=== PATIENT | male | born 1985 | race Two or more races ===

== ENCOUNTER 2022-04-21 01:54 | Emergency (ER) | payer OTHER ==
[~2022-04-21] VITALS: Ht 190.5 cm; Wt 97.7 kg
[2022-04-21 02:13] VITALS: BP 138/90
[2022-04-21] MEDS ORDERED: TETANUS-DIPTH-ACEL PERTUSSIS 0.5ML SYR Tdap IM ONE (03:00)
== END 2022-04-21 03:40 | disposition home or self-care (01) ==
LOC: ER 02:00
DX: S70.351A Superficial foreign body, right thigh, initial encounter (principal); W45.8XXA Other foreign body or object entering through skin, initial encounter; Y93.89 Activity, other specified; Y92.89 Other specified places as the place of occurrence of the external cause; Y99.8 Other external cause status
CPT/HCPCS: 90471; 90715

== ENCOUNTER 2023-09-16 19:30 | Emergency (ER) | payer OTHER ==
[~2023-09-16] VITALS: Ht 190.5 cm; Wt 100.0 kg
[2023-09-16] MEDS ORDERED: CEPH500C PO (19:53)
[2023-09-16] MEDS ORDERED: MUPI2OIN2 EX ×3 (19:53→20:33)
[2023-09-16 20:03] VITALS: BP 176/76; PULSE 86; RESP 16; TEMP 97.7; O2SAT 97
[2023-09-16] MEDS ORDERED: AUG875T PO ×3 (20:13→20:33)
[2023-09-16] MEDS ORDERED: HYDROcodone-ACET 10/325MG TAB PO ONE (20:15)
[2023-09-16] MEDS ORDERED: LIDOCAINE 1% HCL (LOCAL ANESTH.) INJ 20ML MDV ID ONE (20:15)
[2023-09-16] MEDS ORDERED: TETANUS-DIPTH-ACEL PERTUSSIS 0.5ML SYR Tdap IM ONE (20:15)
== END 2023-09-16 20:36 | disposition home or self-care (01) ==
LOC: ER 19:30
DX: S61.511A Laceration without foreign body of right wrist, initial encounter (principal); S61.217A Laceration without foreign body of left little finger without damage to nail, initial encounter; Z79.2 Long term (current) use of antibiotics; Z79.899 Other long term (current) drug therapy; W54.0XXA Bitten by dog, initial encounter; Y93.89 Activity, other specified; Y92.89 Other specified places as the place of occurrence of the external cause; Y99.8 Other external cause status
CPT/HCPCS: 12004; 90471; 90715; 99283; J2001